=== PATIENT | female | born 1990 | race Hispanic/Latino ===

== ENCOUNTER 2018-07-08 16:56 | Observation (INO) | payer BC, MEDICAID ==
[~2018-07-08] VITALS: Ht 157.5 cm; Wt 140.2 kg
[2018-07-08 17:34] LABS: APPEARANCE,URINE CLOUDY (CLEAR); BILIRUBIN,URINE NEGATIVE (NEGATIVE); COLOR,URINE YELLOW (YELLOW); GLUCOSE, URINE (UA) NEGATIVE (NEGATIVE); KETONES,URINE NEGATIVE (NEGATIVE); LEUKOCYTE ESTERASE ,URINE LARGE (NEGATIVE); NITRATE,URINE POSITIVE (NEGATIVE); OCCULT BLOOD,URINE TRACE-INTACT (NEGATIVE); PH,URINE 6.5 (5.0-8.0); PROTEIN,URINE NEGATIVE (NEGATIVE); UROBILINOGEN,URINE 0.2 mg/dL (0.2-1.0)
[2018-07-08 17:42] LABS: SQUAMOUS EPITHELIAL CELL,UR Few /HPF (0-2); WBC,URINE 26-50 /HPF (0-1)
[2018-07-08 17:43] LABS: BACTERIA,URINE Moderate /HPF (None Seen)
[2018-07-08] MEDS ORDERED: LACTATED RINGERS 1000ML 1,000 ML IV ONE (18:37)
[2018-07-08] MEDS ORDERED: PROMETHAZINE HCL 25 MG/ML 1ML AMPULE IM ONE (18:37)
[2018-07-08] MEDS ORDERED: CEFTRIAXONE SODIUM 1 GM ONE (18:38)
[2018-07-08 19:15] VITALS: BP 111/53
[2018-07-08] MEDS ORDERED: PREN1TAB80 PO (20:04)
[2018-07-08] MEDS ORDERED: LACTATED RINGERS 1000ML 1,000 ML IV SCH (20:15)
[2018-07-08] MEDS ORDERED: LACTATED RINGERS 1000ML IV PRN (20:15)
== END 2018-07-08 23:15 | disposition home or self-care (01) ==
LOC: EDH 16:56 → LDH 16:57
PROVIDERS: ADMIT Specialist; ATTEND Specialist
DX: O21.2 Late vomiting of pregnancy (principal); O26.892 Other specified pregnancy related conditions, second trimester; R10.30 Lower abdominal pain, unspecified; O99.512 Diseases of the respiratory system complicating pregnancy, second trimester; J45.909 Unspecified asthma, uncomplicated; O99.342 Other mental disorders complicating pregnancy, second trimester; F99 Mental disorder, not otherwise specified; Z3A.20 20 weeks gestation of pregnancy; Z79.899 Other long term (current) drug therapy
CPT/HCPCS: 81001; 99284; G0378 ×6; J0696; J2550; J7120 ×2; 96360; 96361

== ENCOUNTER 2018-11-03 21:47 | Observation (INO) | payer MEDICAID ==
[~2018-11-03] VITALS: Ht 157.5 cm; Wt 147.0 kg
[~2018-11-03 21:47] MED LIST: PREN1TAB80 PO
[2018-11-03 23:19] LABS: APPEARANCE,URINE Clear (CLEAR); BILIRUBIN,URINE Negative (NEGATIVE); COLOR,URINE Yellow (YELLOW); GLUCOSE, URINE (UA) Negative (NEGATIVE); KETONES,URINE Negative (NEGATIVE); LEUKOCYTE ESTERASE ,URINE Trace (NEGATIVE); NITRATE,URINE Negative (NEGATIVE); OCCULT BLOOD,URINE Negative (NEGATIVE); PH,URINE 6.5 (5.0-8.0); PROTEIN,URINE Negative (NEGATIVE)
[2018-11-03 23:28] LABS: AMPHET/METH SCREEN,URINE NEGATIVE (NEGATIVE); BARBITURATE SCREEN, URINE NEGATIVE (NEGATIVE); BENZODIAZEPINES SCREEN,URINE NEGATIVE (NEGATIVE); CANNABINOID SCREEN,URINE NEGATIVE (NEGATIVE); COCAINE SCREEN,URINE NEGATIVE (NEGATIVE); OPIATE SCREEN,URINE NEGATIVE (NEGATIVE); PHENCYCLIDINE SCREEN,URINE NEGATIVE (NEGATIVE)
[2018-11-03 23:43] LABS: BACTERIA,URINE Few /HPF (None Seen); RBC,URINE 0-1 /HPF (0-1); WBC,URINE 0-1 /HPF (0-1)
[2018-11-04] MEDS ORDERED: PREN1TAB80 PO
[2018-11-04] MEDS ORDERED: UNKNOWN MED (00:01)
== END 2018-11-04 00:10 | disposition home or self-care (01) ==
LOC: EDH 21:47 → LDH 21:48
PROVIDERS: ADMIT Internal Medicine; ATTEND Internal Medicine
DX: O36.8130 Decreased fetal movements, third trimester, not applicable or unspecified (principal); Z3A.37 37 weeks gestation of pregnancy; Z79.899 Other long term (current) drug therapy
CPT/HCPCS: 59025; 80305; 81001; 99284; G0378 ×2

== ENCOUNTER 2021-07-22 16:57 | Emergency (ER) | payer MEDICAID, OTHER ==
[~2021-07-22] VITALS: Ht 157.5 cm; Wt 149.7 kg
[~2021-07-22 16:57] MED LIST changes: +UNKNOWN MED
[2021-07-22 16:59] VITALS: BP 119/40
[2021-07-22] MEDS ORDERED: HYDROCODONE/ACETAMINOPHEN 5/325 MG TAB ONE (18:17)
[2021-07-22] MEDS ORDERED: HYDROCODONE/ACETAMINOPHEN 5/325 MG TAB PO ONE (18:30)
== END 2021-07-22 19:00 | disposition home or self-care (01) ==
LOC: EDH 16:57
DX: R07.89 Other chest pain (principal); M25.552 Pain in left hip; J45.909 Unspecified asthma, uncomplicated; Z98.890 Other specified postprocedural states; Z79.899 Other long term (current) drug therapy; V49.69XA Unspecified car occupant injured in collision with other motor vehicles in traffic accident, initial encounter; Y93.89 Activity, other specified; Y92.413 State road as the place of occurrence of the external cause; Y99.0 Civilian activity done for income or pay
CPT/HCPCS: 71045; 72170

== ENCOUNTER 2024-11-23 05:51 | Emergency (ER) | payer BC, OTHER ==
[~2024-11-23] VITALS: Ht 157.5 cm; Wt 161.0 kg
--- NOTE | 2024-11-23 05:54 | NUR ---
UA CUP PROVIDED
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
[2024-11-23 06:19] LABS: APPEARANCE,URINE CLEAR (CLEAR); GLUCOSE, URINE (UA) NEGATIVE (NEGATIVE); LEUKOCYTE ESTERASE ,URINE NEGATIVE Leu/uL (NEGATIVE); NITRATE,URINE NEGATIVE (NEGATIVE); OCCULT BLOOD,URINE NEGATIVE (NEGATIVE)
[2024-11-23 06:23] LABS: HCG,QUALITATIVE URINE NEGATIVE (NEGATIVE)
[2024-11-23 06:29] LABS: ADD UA MICROSCOPIC NO; AMPHET/METH SCREEN,URINE NEGATIVE (NEGATIVE); BARBITURATE SCREEN, URINE NEGATIVE (NEGATIVE); CANNABINOID SCREEN,URINE NEGATIVE (NEGATIVE); COCAINE SCREEN,URINE NEGATIVE (NEGATIVE)
--- NOTE | 2024-11-23 08:10 | HMCIMG ---
EXAM: CT Head Without IV contrast. CLINICAL HISTORY: headaches chronic, h/p LOCATOR SPECIALIST shunt TECHNIQUE: Axial computed tomography images of the head/brain without intravenous contrast. COMPARISON: None provided. FINDINGS: LOCATOR SPECIALIST Shunt: The tip of the LOCATOR SPECIALIST shunt appears to be outside the left lateral ventricle. Ventricular System: As compared to the right cerebral ventricle, the left cerebral ventricle is collapsed. No abnormal intraventricular hemorrhage or mass effect is seen. The third and fourth ventricles are within normal limits in size and configuration. Brain Parenchyma: No acute infarct, hemorrhage, or mass lesion identified. The hernandes-white matter differentiation is preserved. Basal ganglia, thalami, brainstem, and cerebellum are unremarkable. Extra-axial Spaces: No extra-axial fluid collection or abnormal enhancement. Sinuses: Extensive mucosal thickening involving the left maxillary sinus. Remainder of the paranasal sinuses are clear. Orbits: Orbits are normal in appearance. No evidence of proptosis or orbital mass. Calvarium and Skull Base: No fractures or destructive bony lesions identified. Calvarial bones are intact. Soft Tissues: The scalp and visualized soft tissues are unremarkable. IMPRESSION: No acute intracranial abnormality As compared to the right cerebral ventricle, the left cerebral ventricle is collapsed. The tip of the LOCATOR SPECIALIST shunt appears to be outside the lateral ventricle (lateral to the body of the left lateral ventricle). Remaining ventricles are normal in caliber and configuration. Extensive mucosal thickening involving the left maxillary sinus. /[place]
[2024-11-23] MEDS: 0.9% NACL 500ML IV.SOLN 500 ML IV ONE (08:21)
[2024-11-23] MEDS: ORPHENADRINE 60MG/2ML IM ONE (08:22)
[2024-11-23 10:10] VITALS: BP 122/57; PULSE 58; RESP 20; TEMP 98.3; O2SAT 97
--- NOTE | 2024-11-23 10:11 | NUR ---
DC PATIENT WAS DC'D BY DR TAPIA, TODAY I EXPLAINED TO PATIENT TO FOLLOW UP WITH PCP AND PROVIDED INFO BASED ON DIAGNOSIS I DC'D PATIENTS IV WITH CATH STILL INTACT AND APPLIED 2X2 GAUZE WITH COBAN PATIENT AMBULATED OUT OF ED, NO COMPLICATIONS
== END 2024-11-23 10:09 | disposition home or self-care (01) ==
LOC: EDH 05:51
DX: S06.9XAA Unspecified intracranial injury with loss of consciousness status unknown, initial encounter (principal); S05.8X2A Other injuries of left eye and orbit, initial encounter; G44.89 Other headache syndrome; E66.01 Morbid (severe) obesity due to excess calories; J45.909 Unspecified asthma, uncomplicated; Z98.2 Presence of cerebrospinal fluid drainage device; X58.XXXA Exposure to other specified factors, initial encounter; Y93.89 Activity, other specified; Y92.89 Other specified places as the place of occurrence of the external cause; Y99.8 Other external cause status
CPT/HCPCS: 99284; 96374; 70450; 96375; 80305; 81025; 96372; 81003; J1200; J2405; J2270; J2360